=== PATIENT | female | born 1980 | race Hispanic/Latino ===

== ENCOUNTER 2016-05-27 22:14 | Emergency (ER) | payer OTHER ==
[~2016-05-27] VITALS: Ht 162.6 cm; Wt 106.6 kg
[2016-05-27 22:36] LABS: ABSOLUTE BASOPHIL COUNT 0 /CUMM (0.0-0.2); ABSOLUTE EOSINOPHIL COUNT 0.3 /CUMM (0.0-0.7); ABSOLUTE GRANULOCYTE CT 4.9 /CUMM (1.4-6.5); ABSOLUTE LYMPH COUNT 3.5 /CUMM (1.2-3.4); ABSOLUTE MONOCYTE COUNT 0.7 /CUMM (0.10-0.60); BASOPHIL % 0.4 % (0.0-2.0); EOSINOPHIL % 3.4 % (0-5); GRANULOCYTE % 51.6 % (42.2-75.2); HEMATOCRIT 39.8 % (37-47); MEAN CORPUSCULAR HGB 30.8 PG (27.0-31.0); MEAN CORPUSCULAR VOLUME 90.6 FL (81.0-99.0); PLATELET COUNT 304 /CUMM (130-400); RED BLOOD CELL CT 4.39 /CUMM (4.20-5.40); WHITE BLOOD CELL COUNT 9.5 /CUMM (4.8-10.8)
--- NOTE | 2016-05-27 23:37 | ED GI/GU/ABDOMINAL COMPLAINT ---
History of Present Illness General Chief Complaint: Abdominal Pain/Flank Pain Stated Complaint: ABD PAIN, BLOOD IN STOOL Source: patient Exam Limitations: no limitations Vital Signs & Intake/Output Vital Signs & Intake/Output Vital Signs Date Time Temp Pulse Resp B/P Pulse O2 O2 Flow FiO2 Ox Delivery Rate 05/27 2218 97.1 100 18 118/81 98 Room Air ED Intake and Output 05/28 0000 05/27 1200 Intake Total Output Total Balance Patient 235 lb Weight Allergies Coded Allergies: No Known Allergies (12/17/15) Reconcile Medications Hyoscyamine (Levsin) 0.125 MG TABLET 1 TAB PO Q4 PRN ABDOMINAL PAIN Triage Note: 36 YEAR OLD FEMALE COMPLAINS OF CONSTANT ABD PAIN FOR A MONTH, WAS SEEN AT [facility] AND THEY FOUNF NOTHING, COMPLAINS OF SEVERE ABD PAIN FOR THE PAST 3 DAYS AND RED BLOOD IN HER STOOL. Triage Nurses Notes Reviewed? yes ? N Is pt currently ? No HPI: Patient present with abdominal bloating and crampy abdominal pain for the past month. Patient states that with certain foods she feels that her intestines just swell up and she gets very uncomfortable. Patient was seen at [facility] a few days ago for similar complaints and had blood work and a CAT scan at that time. Patient states that she was told that the CAT scan was normal and she was discharged on Bentyl and MiraLAX. Patient states that the doctor was talking so fast because of so busy at she did not understand all is wrong with her so she did not fill the medications. Today the patient felt that she had to move her bowels and there was blood in the toilet water. This happened again tonight and there was again blood in the toilet water. The crampy abdominal pain is diffuse however more intense in the left lower quadrant. It is colicky in nature. The pain fluctuates between a 2 out of 10 up to 7 out of 10. Patient denies any nausea or vomiting. Patient denies any aggravating or mitigating factors. There is no radiation of the pain outside of the abdominal area. Past History Travel History Traveled to [place] past 21 day No Medical History Any Pertinent Medical History? 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 No Review of Systems Review of Systems Constitutional: Reports: no symptoms. EENTM: Reports: no symptoms. Respiratory: Reports: no symptoms. Cardiovascular: Reports: no symptoms. GI: Reports: see HPI, abdominal pain, bloating, bloody stool. Genitourinary: Reports: no symptoms. Musculoskeletal: Reports: no symptoms. Skin: Reports: no symptoms. Neurological/Psychological: Reports: no symptoms. Hematologic/Endocrine: Reports: no symptoms. Immunologic/Allergic: Reports: no symptoms. All Other Systems: Reviewed and Negative Physical Exam Physical Exam General Appearance: well developed/nourished, alert, awake, anxious, mild distress Head: atraumatic, normal appearance Eyes: Bilateral: PERRL, EOMI. Ears, Nose, Throat, Mouth: hearing grossly normal, moist mucous membrane Neck: normal inspection, supple, full range of motion Respiratory: normal breath sounds, chest non-tender, no respiratory distress, lungs clear Cardiovascular: regular rate/rhythm, normal peripheral pulses Gastrointestinal: normal bowel sounds, soft, non-tender, no organomegaly Rectal: BROWN STOOL, HEME POSITIVE Back: normal inspection, normal range of motion Extremities: normal range of motion Neurologic/Psych: no motor/sensory deficits, awake, alert, oriented x 3, normal gait, normal mood/affect Skin: intact, normal color, warm/dry Core Measures ACS in differential dx? No Severe Sepsis Present: No Septic Shock Present: No Progress Differential Diagnosis: bowel obstruction, colon cancer, diverticulitis, gastritis, hepatitis, ischemic bowel, inflamm bowel dis, SBO Plan of Care: Orders Procedure Date/time Status LIPASE 05/27 2227 Complete HUMAN BETA HCG SCREEN 05/27 2227 Complete AMYLASE 05/27 2227 Complete URINALYSIS 05/27 2220 Complete COMPREHENSIVE METABOLIC PANEL 05/27 2220 Complete CBC WITHOUT DIFFERENTIAL 05/27 2220 Complete Laboratory Tests 05/27/16 2304: Urine Color YEL, Urine Clarity CLEAR, Urine pH 7.0, Ur Specific [place] 1.020, Urine Protein NEG, Urine Ketones NEG, Urine Nitrite NEG, Urine Bilirubin NEG, Urine Urobilinogen 0.2, Ur Leukocyte Esterase NEG, Ur Microscopic EXAM NOT REQUIRED, Urine Hemoglobin NEG, Urine Glucose NEG 05/27/16 2228: Anion Gap 11, Estimated GFR > 60, BUN/Creatinine Ratio 16.7, Glucose 94, Calcium 9.2, Total Bilirubin 0.2, AST 19, ALT 30, Alkaline Phosphatase 94, Total Protein 6.6, Albumin 4.0, Globulin 2.6, Albumin/Globulin Ratio 1.5, Amylase < 30 L, Lipase 76, Total Beta HCG NEGATIVE, CBC w Diff NO MAN DIFF REQ, RBC 4.39, MCV 90.6, MCH 30.8, RDW 14.0, MPV 8.0, Gran % 51.6, Lymphocytes % 36.9, Monocytes % 7.7, Eosinophils % 3.4, Basophils % 0.4, Absolute Granulocytes 4.9, Absolute Lymphocytes 3.5 H, Absolute Monocytes 0.7 H, Absolute Eosinophils 0.3, Absolute Basophils 0, PUBS MCHC 34.0 05/27/16 2225: Amylase Cancelled, Lipase Cancelled, Total Beta HCG Cancelled Initial ED EKG: none Departure Departure Disposition: HOME OR SELF CARE Condition: Stable Clinical Impression Primary Impression: Colitis Referrals: PATIENT HAS NO PRIMARY CARE DR (PCP/Family) KISHA MIRANDA MD Additional Instructions: CALL DR. MIRANDA FOR AN APPOINTMENT (GASTROENTEROLOGY) SOMEONE FROM [facility] WILL CALL YOU TAKE LEVSIN NEEDED FOR DISCOMFORT RETURN IF SYMPTOMS WORSEN OR FOR ANY CONCERNS Departure Forms: Customer Survey General Discharge Information Prescriptions: Current Visit Scripts Hyoscyamine (Levsin) 1 TAB PO Q4 PRN ABDOMINAL PAIN #20 TAB
[2016-05-28] MEDS ORDERED: LEVSIN0.125 M1 PO (00:14)
[2016-05-28 00:39] VITALS: BP 130/81
== END 2016-05-28 00:45 ==
LOC: ERH 22:14
PROVIDERS: Emergency Medicine
DX: K52.9 Noninfective gastroenteritis and colitis, unspecified (principal)
CPT/HCPCS: 81003

== ENCOUNTER 2017-07-11 18:38 | Inpatient (IN) | payer OTHER ==
[~2017-07-11] VITALS: Ht 162.6 cm; Wt 107.3 kg
[~2017-07-11 18:38] MED LIST: LEVSIN0.125 M1 PO
[2017-07-11 19:05] LABS: ABSOLUTE BASOPHIL COUNT 0.1 /CUMM (0.0-0.2); ABSOLUTE EOSINOPHIL COUNT 0.4 /CUMM (0.0-0.7); ABSOLUTE GRANULOCYTE CT 6.4 /CUMM (1.4-6.5); ABSOLUTE LYMPH COUNT 4.1 /CUMM (1.2-3.4); ABSOLUTE MONOCYTE COUNT 0.7 /CUMM (0.10-0.60); BASOPHIL % 1.2 % (0.0-2.0); EOSINOPHIL % 3.1 % (0-5); HEMATOCRIT 42.9 % (37-47); MEAN CORPUSCULAR HGB 30.9 PG (27.0-31.0); MEAN CORPUSCULAR HGB CONC 33.8 G/DL (33.0-37.0); MEAN CORPUSCULAR VOLUME 91.5 FL (81.0-99.0); PLATELET COUNT 415 /CUMM (130-400); RED BLOOD CELL CT 4.69 /CUMM (4.20-5.40); WHITE BLOOD CELL COUNT 11.7 /CUMM (4.8-10.8)
[2017-07-11 19:09] LABS: GRANULOCYTE % 54.8 % (42.2-75.2)
--- NOTE | 2017-07-11 19:09 | ED PSYCHIATRIC COMPLAINT ---
See Addendum History of Present Illness General Chief Complaint: Psychiatric Related Complaint Stated Complaint: BIBA SI Source: patient Exam Limitations: no limitations Vital Signs & Intake/Output Vital Signs & Intake/Output 07/11/17 Allergies Coded Allergies: No Known Allergies (12/17/15) Triage Note: PT BIBA AFTER BEING FOUND IN HER CAR WITH BOTH OF HER WRISTS CUT. BLEEDING CONTROLLED AND PT HAS FULL RANGE OF MOTION TO BOTH HANDS. PT HAD TOLD FAMILY SHE WAS SUICIDAL, AND FAMILY WAS ABLE TO FIND HER IN [place]. PT ARRIVES ANXIOUS AND COOPERATIVE. Triage Nurses Notes Reviewed? yes Onset: Abrupt Duration: unknown duration Timing: recent history HPI: 07/11/17 9:30 PM 7-year-old female presents to the emergency department on a police paper for alcohol intoxication and suicidal ideation. The patient verbalized suicidal ideation. Her daughter who is in [place], called the police. She did cut her wrist. She has lacerations to both wrists. They're linear. She denies other injuries or complaints. (Asael Lucia DO) Reconcile Medications No Known Home Medications (Kiana ALMONTE,Asael Gtz) Past History Travel History Traveled to [facility] past 21 day No Medical History Any Pertinent Medical History? 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 No (Asael Lucia DO) Review of Systems Review of Systems Constitutional: Reports: no symptoms. EENTM: Reports: no symptoms. Respiratory: Reports: no symptoms. Cardiovascular: Reports: no symptoms. GI: Reports: no symptoms. Genitourinary: Reports: no symptoms. Musculoskeletal: Reports: see HPI. Skin: Reports: see HPI. Neurological/Psychological: Reports: depressed. Hematologic/Endocrine: Reports: see HPI. Immunologic/Allergic: Reports: no symptoms. (Asael Lucia DO) Physical Exam Physical Exam General Appearance: alert, awake, anxious, moderate distress Head: atraumatic, normal appearance Eyes: Bilateral: normal appearance, PERRL, EOMI. Ears, Nose, Throat: normal pharynx, normal ENT inspection Neck: normal inspection, supple Respiratory: normal breath sounds, chest non-tender, no respiratory distress Cardiovascular: regular rate/rhythm Gastrointestinal: non-tender Extremities: LACERATIONS Neurological/Psychiatric: awake, agitated, alert, depressed affect Appearance/Memory/Insight: disheveled Behavoir/Eye Contact/Speech: cooperative Thoughts/Hallucinations: no apparent hallucination Skin: LACEARTIONS SAD PERSONS SAD PERSONS Response Value Depression/Hopelessness? yes 2 Previous Attempts/Psych Care yes 1 Excessive Ethanol/Drug Use? yes 1 Rational Thinking Loss? yes 2 Single//? yes 1 Organized/Serious Attempt yes 2 Social Support? has no support 1 Total 10 SAD PERSONS Done? yes (Asael Lucia DO) Progress Differential Diagnosis: drug intoxication, drug overdose, drug withdrawal, DEPRESSION Plan of Care: Orders Procedure Date/time Status Continuous Observation Monitor 07/13 0700 Active Continuous Observation Monitor 07/13 0300 Active Regular Diet 07/12 L Active Continuous Observation Monitor 07/12 2300 Active Continuous Observation Monitor 07/12 1900 Active Current Medications Sig/Nato Start time Last Medication Dose Stop Time Status Admin Zolpidem Tartrate 10 MG AT BEDTIME 07/12 2144 UNVr 07/12 (Ambien) 213 Nicotine 21 MG DAILY 07/12 2029 UNVr 07/12 (Nicoderm) 2031 The right wrist laceration was anesthetized with lidocaine 1% 5 mL, 3 sutures 4- 0 placed by myself sterile dressing bacitracin applied. The to left wrist lacerations were anesthetized with lidocaine 1% 5 ML's, 7 sutures were placed 3-0 by myself patient tolerated procedures well sterile dressing bacitracin is applied the total length of all lacerations was approximately 5 cm (Giorgio Harris) Initial ED EKG: none (Asael Lucia DO) Hand-Off Endorsed To: Asael Bruno MD Endorsed Time: 07 Pending: consult (Julien ALMONTE,Camacho Singh) Comments: 07/12/2017 7:08:43 AM patient signed out to me by Dr. 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 07/12/2017 7:24:16 PM patient signed out to Dr. Ross at shift private branch exchange repairer after an uneventful emergency department stay during the day shift. (Asael Bruno MD) Hand-Off Endorsed To: Asael Bruno MD Endorsed Time: 0700 Pending: other (Vandana ALMONTE,Eliseo) Departure Departure Disposition: STILL A PATIENT Condition: Stable Clinical Impression Primary Impression: Depression Secondary Impressions: Alcohol abuse, Lacerations of multiple sites of left arm Referrals: Yulisa ALMONTE,Camacho Patricia (PCP/Family) Departure Forms: Customer Survey General Discharge Information Comments Patient has lacerations that are linear relatively superficial to the left and right wrist. The wounds were dressed. POLINA Ochoa's to close the wounds. Tetanus shot was given. She will be signed out to Dr. Victoria at 11 PM. (Asael Lucia DO) Departure Prescriptions: Current Visit Scripts No Known Home Medications (Asael Bruno MD) Critical Care Note Critical Care Note Critical Care Time: 30-74 min (Asael Lucia DO)
--- NOTE | 2017-07-12 12:57 | ED PSYCH CRISIS CONSULTATION ---
See Addendum Crisis Consult Basic Assessment Date of Consult: 07/12/17 Responsible Person/Accompanied By: Brought in by ambulance on a PEER (Yari MCNEIL ) Insurance Authorization: Insurance #1: Insurance name: JUNI Mckeon C&A Policy number: [id number] ED Provider: Patient's ED Provider: Asael Lucia DO Primary Care Physician: Patient's PCP: Camacho Márquez MD PCP's Current Psychiatrist: No current psychiatric provider Chief Complaint: Suicide attempt by cutting wrists / alcohol Patient's Quote: "I was under a bit of depression...stress." Present Illness: Patient is a 37 year old female who was brought to the emergency department on a police emergency examination request (P.E.E.R.) from [place] [employer]. The PEER specifies that "said she is under alot of stress and wanted to kill herself....cut both wrists w/ razor blade." On arrival, patient's blood alcohol level was ~309. Patient asserts she has been "going through a few thing.bills.. 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 Patient reports her family is experiencing financial difficulties due to ananth's unemployment. Patient also reports she had a "falling out" with her family (mother and sister). Patient states "I let me emotions get in the way" but indicates she has recently tried to repair the relationship. Yesterday, patient admits to cutting her wrists bilaterally. Patient had called her sister informing her of her thoughts to self-harm. Patient was also communicating with family members in a group text message. Patient asserts she drove to a [employer] and bought a razor blade yesterday with the intent to cut. Patient denies any previous cutting behavior. Patient states she was feeling hopeless about her financial situation and was thinking "I'm trying, trying, trying" yet she feels she isnt helping the situation. Patient has no history of mental health diagnosis or treatment. Patient has received substance use treatment after she received a driving under the influence charge several years ago. Patient was referred by court for mandated substance use treatment at [facility] in [place], [place] which she completed sucessfully. Patient does assert she is receptive to starting outpatient mental health treatment. Patient has 3 children (son age 2.5 years, son age 17, and daughter age 21.) Patient's adult daughter lives in [place]. Patient's ananth is the father of her 2.5 year old son. Patient lives in [place], [place] with ananth and two of her younger children. Patient denies current suicidal ideation, intent or plan. A [facility] Suicide Severity Rating Scale (C-S.S.R.S.) was completed - Patient has had suicidal attempt yesterday and significant suicidal ideation in the past week. Patient indicates the first time she experienced suicidal ideation was about 1 year ago and has had intermittent ideation since. Patient denies any past suicide attempts. Patient has activating events of family conflict and financial difficulties. Patient is not currently in any formal mental health treatment / cousneling. Patient reports feeling hopeless, uses alcohol several times a week, and has experienced significant anxiety recently. Patient did identify protective factors such as a reason for living, responsibility to family, and a supportive family. Patient reports drinking alcohol 1-2x a week. Patient reports she typically drinks only a few servings at a time. Yesterday, patient admits to drinking a beer as well as almost a pint of tequilla hard alcohol. Patient has insight that she drinks more when "feeling down." Patient was previously evaluated at [facility] in November 2015 for alcohol intoxication with a BAL of 245. Patient denies trauma history but does indicate she was affected by the loss of a former significant other / father of her older son. Patient has no acute medical findings and was cleared by attending ED physician. Patient's wrists were treated with dressing / Tyrone bandages. Patient is not prescribed any medications. Patient's Address: [address] [place] [address] Who Do You Live With? Family (Jayde and two children(2&17)) Family/Informants Interviewed: Jayde Allergies - Coded Allergies: No Known Allergies (12/17/15) Current Medications - No Known Home Medications Laboratory Results: Laboratory Tests 07/11/17 1854: Anion Gap 17 H, Estimated GFR > 60, BUN/Creatinine Ratio 16.7, Glucose 105 H, Calcium 9.3, Total Bilirubin 0.5, AST 18, ALT 31, Alkaline Phosphatase 100, Total Protein 7.7, Albumin 4.6, Globulin 3.1, Albumin/Globulin Ratio 1.5, CBC w Diff NO MAN DIFF REQ, RBC 4.69, MCV 91.5, MCH 30.9, MCHC 33.8, RDW 13.0, MPV 8.0 , Gran % 54.8, Lymphocytes % 34.8, Monocytes % 6.1, Eosinophils % 3.1, Basophils % 1.2, Absolute Granulocytes 6.4, Absolute Lymphocytes 4.1 H, Absolute Monocytes 0.7 H, Absolute Eosinophils 0.4, Absolute Basophils 0.1, Serum Alcohol 309.0 07/11/17 1853: Urine Opiates Screen < 100, Methadone Screen < 40, Barbiturate Screen < 60, Ur Phencyclidine Scrn < 6.00, Amphetamines Screen 104, U Benzodiazepines Scrn < 85, Urine Cocaine Screen < 50, Urine Cannabis Screen < 5.00 (Puneet Sethi LCSW) Addendum Addendum 07/12/2017, 7:10pm Pt. was seen by this soda tester on the evening shift for re-evaluation after being held over from the day shift. Pt. was found to be at risk of harm to self and a bed search had been done after which pt's information had been faxed to [facility]. Both hospitals were called Pt. was alert and oriented this evening. She was in bed reading a book when this clinician came into her room. Pt. was pleasant and cooperated with the re- evaluation. She denied any current suicidal thoughts and said that she cut her wrists impulsively while under the influence of alcohol. Pt. said that she could not believe that she had done what she had done. Pt. said that she was hoping to be admitted to [facility] so that she could be close to her two year old son. Pt. then asked if there was a possibility that when the psychiatrist evaluated tomorrow that she might be allowed to do [facility] IOP instead of being admitted inpatient. Pt. said that she just began a new job and that she has to work on Friday. Pt. also said that she missed her son and had a lot of housework to do. Pt. was told that there was a possibility of being enrolled in the IOP instead of being hospitalized but that this would be the decision for the psychiatrist. Pt. expressed understanding of this and of being held over tonight in the ED. Pt. offered no other complaints. 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 Patient is willing to accept mental health treatment, Physical Limitations (Interventions): None assessed Psychiatric Treatment History Psych Treatment Psychiatric Treatment No Inpatient Treatment No Outpatient Treatment No Diagnosis by History: Alcohol use disorder Substance Use/Abuse History Drug Use/Abuse Substances Used/Abused Yes Substance Used/Abused Alcohol First Use Patient did not specify Last Used Yesterday How much used/taken Patient reports 1 beer & ~1 pint of tequilla. blood alcohol level at 309 How often Patient reports use 1-2x per week for the past few years For how long Longstanding alcohol use as adult Route of use Ingestion Substance Abuse Treatment Substance Abuse Treatment Past Substance Abuse [place] Yes Inpatient Treatment No Outpatient Treatment Yes Location of Treatment [facility] in [place], [place] Reason for Treatment Alcohol use disorder / court referred treatment after a driving under influence charge Dates of Treatment Unknown Response to Treatment Patient did achieve sobriety and sustained this with alcoholics anonymous in the community. However, she has had relapses with episodes of binge drinking. Comments: - (Navdeep JOSEPH,Puneet) Current Mental Status Mental Status Orientation: Person, Place, Situation Affect: Depressed, Sad Speech: WNL Neuro-vegetative: Anhedonia, Sleep Disturbance Appearance Appearance- Dress/Hygiene: Patient dressed in hospital attire. No remarkable features observed other cheo tyrone bandages on both arms due to recent cutting. Behaviors Thought Process: WNL Thought Content: WNL Memory: WNL Insight: Fair SI/HI Risk Assessment Past Suicidal Ideation/Attempts Yes (SI in past year. Attempt 07/11) Current Suicidal Ideation/Att No (Patient denies current SI) Past Homicidal Ideation/Att: No Current Homicidal Ideation/Attempts No Degree of Intent: None Danger To: Self Gravely Disabled: Poor Impulse Control, Poor Judgment Risk Factors: access to lethal means, high anxiety/distress, history of suicide atmpts, substance abuse, lack of outcome concern Lethality Ratin PTSD Checklist PTSD Done? patient declined (Pt. denies trauma history. ) ED Management Sitter: Yes Restraints: No (Patient is calm & cooperative.) (Puneet Sethi LCSW) DSM5/PS Stressors/Medical Prob Diagnosis' (DSM 5, Stressors, Medical): F32.9 Unspecified depressive disorder F10.20 Alcohol use disorder, severe Current GAF: 20 Comments: Financial difficulties (Puneet Sethi LCSW) Departure Disposition Psych Medical Clearance Date: 07/12/17 Medically Cleared at: 1100 Time Started: 1100 Time Ended: 1200 Psychiatrist Consulted: Dr. Zarina Guzmán MD Date Disposition Established: 07/12/17 Time Disposition Established: 1200 Plan for Disposition - Modality: Bed Search Rationale for Disposition: Crisis evaluation reviewed with Dr. Guzmán. Patient has had a suicide attempt yesterday. Patient is at on-going risk of harm to self due to unresolved depressed mood, anxiety, and recent alcohol use. There are no beds available at [facility]'s inpatient psychiatric unit. Patient will be referred after a bed search to other [facility] with availability for an admission. Patient was informed of crisis disposition plan. Referrals Camacho Márquez MD (PCP/Family) (Puneet Sethi LCSW)
--- NOTE | 2017-07-12 15:54 | ED PSY CRISIS COLLATERAL NOTE ---
Collateral Note Collateral Note Family/Inform/Bela Contacts: Spoke in-person to patient's firadha - Bradly Morales. Ananth reports patient has made suicidal statements in the past few months but she has not had any history of attemtps. Ananth reports he is concerned about the level of patient's drinking - he asserts she does not drink everyday but her intermittent drinking often leads to serious binges. Ananth is concerned about the impact of an extended stay at the hospital on patient's 2 year old son as well as on her job which she only recently started. Ananth asserts patient's son has a calming effect on her and that she would have difficulty with being from him. This teletypewriter operator advised on the rationale for an inpatient admission and also suggested possible alternative disposition on Friday if no inpatient beds are found and patient maintains stability and denies suicidal ideation (direct discharge from ED to IOP appointment at [facility]). This teletypewriter operator advised ananth that a discharge is unlikely and that the primary crisis disposition currently is an inpatient psychiatric transfer admission bed search. Ananth expressed no concerns currently and understands the crisis plan. Ananth agrees that patient would benefit from counseling / psychotherapy. Martinradha deferred formally seeking an intake appointment. This teletypewriter operator informed ananth that on-call psychiatrist Dr. Guzmán would be evaluation patient tomorrow in the afternoon for further evaluation.
--- NOTE | 2017-07-13 10:07 | ED PSYCHIATRIST/APRN CONSULT ---
Psychiatrist/TAILER IN ED Consult Assessment and Plan: 37 year old woman with no treated psychiatric history, brought to the ER after she was intoxicated, on a PEER and cut herself with both wrists and razor blade. Her etoh was 309. She was seen by crisis on 07/12 and noted that she was going through a number of things including financial stressors and falling out with her own family. She stated that she became too emotional and impulsively went to the store and bought razor to cut her wrist. Noted that she is anxious in general, but has never had any suicide attempts and can function overall well. she minimized her drinking stating its not like that and did not volunteer her past DUI; her fianc also noted that she is drinking excessively. Ananth stated that she has made suicidal statements over the last few months and is likely minimizing extent of her drinking. Both are concerned about her returning to work and caring for her 2 year old son (being cared by father/ananth). 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 Affectively she cried at times, appropriately, mostly b/c of not being able to be with her toddler son, stating she missed him. Informed her that he could come visit again today. She denied past suicidal thoughts except for many years ago, denied past attempts, denied difficulties with appetite or energy or hallucinations. She has no evidence of psychosis. She was pleasant but anxious about being admitted. She has had no past treatment inpatient or outpatient. She was in the ER with intoxication in the last two years as well. We discussed medication options, including PRN or standing medications she stated that years ago when she tried to quit smoking and was anxious her doctor gave her something with the opposite effect and she never wanted to take meds afterward. Despite this, agreed to some PRN medications only while hospitalized for her anxiety, claustrophobia in being in the room and sleep. MSE: well groomed woman, in hospital gown,good eye contact and well related. Her speech is normal. Thinking is linear. Thought content is free of delusional material ; positive for general anxiety about her current situation, depression about her suicide attempt and wanting to be home with her family. Not actively suicidal and denies any recent thoughts, stating it was impulsive. Her mood is down and affect is full, reactive, appropriately tearful and is able to recompensate on her own. She is of average intellect at least, insight and judgment are both poor in light of the recent incident. A: 37 year old woman with anxiety/depressive sx, alcohol use disorder, after suicide attempt by cutting wrists while intoxicated. She is tearful, depressed but has many protective factors, namely children including a toddler she cares for, a fianc with whom she states she has a good relationship, and a recent job. Her recent intoxication, no past treatment and suicide attempt are her most active risk factors for violence to self. Plan: continues to meet criteria for admission at this time. She does have a number of protective factors which will mitigate her acute risk once this episode continues to resolve and she is set up with outpatient care. She was given ambien but given her severe alcohol history and likelihood that the med may continue while inpatient, I will change to trazodone, with PRN carolpar for now, and adjust as necessary. She declined any standing meds and did not want any meds at all, except maybe for sleep. Would benefit from something in the short term for anxiety sx especially, continue to educate her. Urine hcg prior to meds. Minimizing etoh use but will likely need substance use component in her treatment given her etoh levels, past ER visit and fianc collateral about consumption.
--- NOTE | 2017-07-14 13:40 | IP CRISIS DIAG ASSESS PSYCH ---
Diagnostic Assessment Basic Assessment Insurance Authorization: Insurance #1: Insurance name: JUNI Mckeon C&A Phone number: Policy number: [id number] Group number: Authorization number: Primary Care Physician: Patient's PCP: Camacho Márquez MD PCP's Patient's Quote: "I was under a bit of depression...stress." Present Illness: The following was taken from the Crisis Consult authored by Juan Sethi LCSW: Patient is a 37 year old female who was brought to the emergency department on a police emergency examination request (P.E.E.R.) from [place] [employer]. The PEER specifies that "said she is under alot of stress and wanted to kill herself....cut both wrists w/ razor blade." On arrival, patient's blood alcohol level was ~309. Patient asserts she has been "going through a few thing.bills.. 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 Patient reports her family is experiencing financial difficulties due to firadha's unemployment. Patient also reports she had a "falling out" with her family (mother and sister). Patient states "I let me emotions get in the way" but indicates she has recently tried to repair the relationship. Yesterday, patient admits to cutting her wrists bilaterally. Patient had called her sister informing her of her thoughts to self-harm. Patient was also communicating with family members in a group text message. Patient asserts she drove to a [employer] and bought a razor blade yesterday with the intent to cut. Patient denies any previous cutting behavior. Patient states she was feeling hopeless about her financial situation and was thinking "I'm trying, trying, trying" yet she feels she isnt helping the situation. Patient has no history of mental health diagnosis or treatment. Patient has received substance use treatment after she received a driving under the influence charge several years ago. Patient was referred by court for mandated substance use treatment at [facility] in [place], [place] which she completed sucessfully. Patient does assert she is receptive to starting outpatient mental health treatment. Patient has 3 children (son age 2.5 years, son age 17, and daughter age 21.) Patient's adult daughter lives in [place]. Patient's ananth is the father of her 2.5 year old son. Patient lives in [place], [place] with ananth and two of her younger children. Patient denies current suicidal ideation, intent or plan. A [facility] Suicide Severity Rating Scale (C-S.S.R.S.) was completed - Patient has had suicidal attempt yesterday and significant suicidal ideation in the past week. Patient indicates the first time she experienced suicidal ideation was about 1 year ago and has had intermittent ideation since. Patient denies any past suicide attempts. Patient has activating events of family conflict and financial difficulties. Patient is not currently in any formal mental health treatment / cousneling. Patient reports feeling hopeless, uses alcohol several times a week, and has experienced significant anxiety recently. Patient did identify protective factors such as a reason for living, responsibility to family, and a supportive family. Patient reports drinking alcohol 1-2x a week. Patient reports she typically drinks only a few servings at a time. Yesterday, patient admits to drinking a beer as well as almost a pint of tequilla hard alcohol. Patient has insight that she drinks more when "feeling down." Patient was previously evaluated at [place] [facility] in November 2015 for alcohol intoxication with a BAL of 245. Patient denies trauma history but does indicate she was affected by the loss of a former significant other / father of her older son. Patient has no acute medical findings and was cleared by attending ED physician. Patient's wrists were treated with dressing / Tyrone bandages. Patient is not prescribed any medications. Crisis and psychiatrist met with patient through out the weekend. Pt continued to be recommended for inpatient psychiatric treatment. Patient's [address]: [address] [place] [id number] Other Phone Number: Who Do You Live With? Family (Jayde and two children(2&17)) Feel Safe Where You Live? Yes Feel Safe in Your Relationship Yes Marital Status: single Do You Have Children? Yes Ages? 21, 17 2.5 Primary Language? Faroese Family/Informants Interviewed: Fiance Allergies - Coded Allergies: No Known Allergies (12/17/15) Current Medications - No Known Home Medications Consequences of Psych Med Use: not prescribed any medications Lab Results: Laboratory Tests 07/13/17 2015: Urine Test NEGATIVE Toxicology Screen Completed? Yes Results: negative Past History Abuse/Trauma History Trauma History/Current Trauma: Denies Legal History Current Legal Status: alcohol/drug legal problm (completed tx for DUI) Have you ever been arrested? 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 Patient is willing to accept mental health treatment, Physical Limitations (Interventions): None assessed Psychiatric Treatment History Psych Treatment Psychiatric Treatment No Inpatient Treatment No Outpatient Treatment No Diagnosis by History: Alcohol use disorder Risk Factors: access to lethal means, high anxiety/distress, history of suicide atmpts, substance abuse, poor impulse control, lack of outcome concern Substance Use/Abuse History Drug Use/Abuse minimum 12mo Hx Substances Used/Abused Yes Substance Used/Abused Alcohol First Use Patient did not specify Last Used Yesterday How much used/taken Patient reports 1 beer & ~1 pint of tequilla. blood alcohol level at 309 How often Patient reports use 1-2x per week for the past few years For how long Longstanding alcohol use as adult Route of use Ingestion Substance Abuse Treatment Substance Abuse Treatment Past Substance Abuse [place] Yes Inpatient Treatment No Outpatient Treatment Yes Location of Treatment [facility] in [place], [place] Reason for Treatment Alcohol use disorder / court referred treatment after a driving under influence charge Dates of Treatment Unknown Response to Treatment Patient did achieve sobriety and sustained this with alcoholics anonymous in the community. However, she has had relapses with episodes of binge drinking. Sexual History Sexually Active Yes # of partners 1 Sexual Orientation Heterosexual Education History Highest Level of Education: not sure Preferred Learning Style: visual, auditory, experiential Current Mental Status Mental Status Orientation: Person, Place, Situation Affect: Depressed, Sad Speech: WNL Neuro-vegetative: Anhedonia, Sleep Disturbance Appearance Appearance- Dress/Hygiene: Patient dressed in hospital attire. No remarkable features observed other cheo tyrone bandages on both arms due to recent cutting. Behaviors Thought Process: WNL Thought Content: WNL Memory: WNL Insight: Fair SI/HI Risk Assessment - Minimum 6mo History- Past Suicidal Ideation/Attempts Yes (SI in past year. Attempt 07/11) Current Suicidal Ideation/Att No (Patient denies current SI) Past Homicidal Ideation/Att: No Current Homicidal Ideation/Attempts No Degree of Intent: None Danger To: Self Gravely Disabled: Poor Impulse Control, Poor Judgment Risk Factors: access to lethal means, high anxiety/distress, history of suicide atmpts, substance abuse, lack of outcome concern Lethality Ratin Needs/Init TX Plan/Goals: Comphrensive Psychiatric Assessment Medication Evaluation Comphrensive Psychosocial Assessment Individual/ Group Therapy Family Mtg AUDIT-C Questionnaire: AUDIT-C Questionnaire: Response Value ETOH use in the past year 2-4 times/week 3 # drinks typical/day 3 or 4 1 6 or > drinks per occasion Monthly 2 Total 6 DSM5/PS Stressors/Medical Prob Diagnosis' (DSM 5, Stressors, Medical): F32.9 Unspecified depressive disorder F10.20 Alcohol use disorder, severe Current GAF: 28 Comments: Financial difficulties
--- NOTE | 2017-07-14 17:18 | SOCIAL WORKER SOCIAL HX PSYCH ---
Social History Basic Assessment Insurance Authorization: Insurance #1: Insurance name: JUNI Mckeon C&A Phone number: Policy number: [id number] Group number: Authorization number: Primary Care Physician: Patient's PCP: Camacho Márquez MD PCP's Primary Language? Spanish Living Situation Rents or Owns Home? rents Feel Safe Where You Are Living Yes Feel Safe in Relationships? Yes Allergies - Coded Allergies: No Known Allergies (12/17/15) Current Medications - No Known Home Medications Past History Past Medical History Neurological: NONE EENT: NONE Cardiovascular: NONE Respiratory: NONE Gastrointestinal: NONE Hepatic: NONE Renal: NONE Musculoskeletal: NONE Psychiatric: NONE Endocrine: NONE Blood Disorders: NONE Cancer(s): NONE DOOR TRIMMER/Reproductive: NONE Past Surgical History Surgical History: none /Family History Place/Country of Origin: [place], [place] Childhood Family Constellation: Mother, twin brother, older sister, and younger brother. Primary Childhood Caretakers: mother Family Life During Childhood: Pt lived in [place] until she was [age] years old then moved to [place]. Pt reports it was tough growing up but managed to get by, overall good. DCF Involvement? No Mother's Age (Current/): 58 Relationship w/Mother: "never was great but we talk" Father's Age (Current/): 67 Relationship w/Father: "on and off, he lives in [place] so I see him here and there" Any Sibling(s)? Yes Sibling's Gender(s)/Age(s): female Sibling 1: (older sister), male Sibling 2: (Twin brother ), male Sibling 3: (younger brother ) Relationship w/Sibling(s): Pt reports she has a okay relatiosnhip with siblings. Relationship w/Friends: Pt reports that she is connected to friends, she has people to go to and try to get together on weekends. Number of Pregnancies: 3 Number of Miscarriages: 0 Number of Abortions: 0 Abuse/Trauma History Trauma History/Current Trauma: Denies History of Trauma/Abuse Treatment? No Legal History Current Legal Status: none Have you ever been arrested Yes (GRI[place]I in 2010) Number of Arrests: 1 Hx of Juvenile Legal Charges? No Hx of Adult Legal Charges? 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 Patient is willing to accept mental health treatment, Physical Limitations (Interventions): None assessed Last Physical: January 2017 History of Seizures? No History of Blackouts? No ADL Limitations: none [place]/Social/Peer Relations Connected with friends and peers, has people to go to. Try to get togther on weekends with their children. Meaningful Activities: Likes to read, be outdoors with children and go to [place], listening to music, spending time with family. Childhood Mormonism: Druze, Seventh Day Worship Current Jain Affiliation: Druze Is Spirituality Important to You? Yes, Pt reports she will reconnect with tenriism jainism community, was a great support that she use to be stringly connected with. Patient's Ethnicity: Pakistani Cultural/Ethnic Issues: none reported Are There Developmental Issues? No Milestones Achieved: fine motor, gross motor Psychiatric Treatment History Psych Treatment Inpatient Treatment No Outpatient Treatment No Diagnosis: Alcohol use disorder Risk Factors: access to lethal means, high anxiety/distress, history of suicide atmpts, substance abuse, poor impulse control, lack of outcome concern Substance Use/Abuse History Drug Use/Abuse Substance Used/Abused Alcohol First Use Patient did not specify Last Used Yesterday How much used/taken Patient reports 1 beer & ~1 pint of tequilla. blood alcohol level at 309 How often Patient reports use 1-2x per week for the past few years For how long Longstanding alcohol use as adult Route of use Ingestion Have You Ever Attended AA? Yes (When arrest in 2010 for DUI) Do You Attend AA Currently? No Do You Have a Sponsor? No Substance Abuse Treatment Substance Abuse Treatment Inpatient Treatment No Outpatient Treatment Yes Location of Treatment [facility] in [place], [place] Reason for Treatment Alcohol use disorder / court referred treatment after a driving under influence charge Dates of Treatment Unknown Response to Treatment Patient did achieve sobriety and sustained this with alcoholics anonymous in the community. However, she has had relapses with episodes of binge drinking. 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 of Jobs in Last 5 Years: 2 Attendance: Above average Performance: Exemplary History Have You Been in The ? No Current Mental Status Mental Status Orientation: Person, Place, Situation Affect: Depressed, Sad Speech: WNL Neuro-vegetative: Anhedonia, Sleep Disturbance Appearance Appearance- Dress/Hygiene: Patient dressed in hospital attire. No remarkable features observed other cheo evan bandages on both arms due to recent cutting. Behaviors Thought Process: WNL Thought Content: WNL Memory: WNL Insight: Fair SI/HI Risk Assessment Past Suicidal Ideation/Attempts Yes (SI in past year. Attempt 07/11) Current Suicidal Ideation/Att No (Patient denies current SI) Past Homicidal Ideation/Att: No Current Homicidal Ideation/Attempts No Degree of Intent: None Danger To: Self Gravely Disabled: Poor Impulse Control, Poor Judgment Lethality Ratin - Conclusion and Recommendations for treatment - and discharge planning
[2017-07-14 17:58] VITALS: BP 133/66
[2017-07-14 17:59] VITALS: BP 133/66
[2017-07-14 19:57] VITALS: BP 134/78
[2017-07-14 19:59] VITALS: BP 134/78
--- NOTE | 2017-07-14 21:26 | Admission Certification ---
Admission Certification Certification Statement - As attending physician, I certify that at the time of - admission, based on clinical presentation, severity of - symptoms, need for further diagnostic testing and - therapeutic interventions, and risk of adverse outcomes - without in-hospital treatment, in my clinical assessment, - this patient requires an acute hospital stay for a minimum - of two nights or longer. I have also considered psychsocial - factors such as support system, advanced age, financial - issues, cognitive issues, and failed out-patient treatments, - past re-admission history, safety of patient, and lack of - compliance as applicable. Specific rationale supporting this admission is: Depression, suicidal attempt
--- NOTE | 2017-07-14 21:26 | History & Physical ---
General Information and HPI MD Statement: I have seen and personally examined CHAIM CROWE and documented this H&P. The patient is a 37 year old F who presented with a patient stated chief complaint of [Suicide attempt]. Source of Information: patient Exam Limitations: no limitations History of Present Illness: 37 yo F with h/o ?anxiety, depression (not on medications), was brought in after being found in her car with both wrists cut. She was intoxicated at that point. She reports being under a lot of stress but states that she does not drink on a daily basis. She only drinks over the weekend. She has probably been managing her anxiety with alcohol use, as medications did not seem to help her. Please refer to Psych H and P for full details. 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 Currently patient denies any symptoms of chest pain, palpitations, dyspnea, nausea, vomiting, abdominal pain, diarrhea or urinary symptoms. Her bilateral wrist lacerations were sutured in the ER. 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 Psychosocial History Where do you live? Home Who Do You Live With? spouse, child Services at Home: None Primary Language: Yi Smoking Status: Current Everyday Smoker ETOH Use: occasional use (once every week) Illicit Drug Use: denies illicit drug use Functional Ability ADLs Independent: dressing, eating, toileting, bathing. Ambulation: independent Employment History Employment Employed Review of Systems Review of Systems Constitutional: Denies: chills, fever, weakness. EENTM: Reports: no symptoms. Cardiovascular: Denies: chest pain, palpitations, syncope. Respiratory: Denies: cough, short of breath, sputum production, wheezing. GI: Denies: abdominal pain, diarrhea, nausea, vomiting. Genitourinary: Reports: no symptoms. Neurological/Psychological: Reports: see HPI. All Other Systems: Reviewed and Negative Exam & Diagnostic Data Last 24 Hrs of Vital Signs/I&O Vital Signs Date Time Temp Pulse Resp B/P B/P Pulse O2 O2 Flow FiO2 Mean Ox Delivery Rate 07/14 1958 98.6 93 134/78 07/14 1956 98.6 93 134/78 07/149 98.8 92 133/66 07/14 1758 98.8 92 133/66 07/14 1543 98.9 84 18 129/74 97 07/14 1443 98.4 84 18 128/80 96 07/14 1136 98.4 88 18 110/70 100 07/14 0851 98.7 85 18 113/72 98 07/14 0011 97.8 90 18 111/71 98 Room Air Physical Exam General Appearance Alert, Oriented X3, Cooperative, No Acute Distress Skin Bilateral wrist lacerations with sutures in place HEENT PERRLA, EOMI, Mucous Membr. moist/pink Neck Supple Cardiovascular Regular Rate, Normal S1, Normal S2, No Murmurs Lungs Clear to Auscultation, Normal Air Movement Abdomen Normal Bowel Sounds, Soft, No Tenderness Neurological Exam Findings: Normal Gait, Normal Speech, Strength at 5/5 X4 Ext, Normal Tone, Sensation Intact, Cranial Nerves 3-12 NL Cranial Nerves II through XII: intact Extremities No Edema, Normal Pulses, No Tenderness/Swelling Last 24 Hrs of Labs/Ramy: Laboratory Tests 07/13/172014: Urine Test NEGATIVE Diagnostic Data EKG Results -- CXR Results -- Assessment/Plan Assessment: 37 yo F with h/o anxiety/ depression, alcohol use disorder, is admitted after suicide attempt by cutting her wrists. - Continue management as per Psych team. - Smoking cessation counseling, nicotine patch and gum. - Bilateral wrist lacerations apply bacitracin twice daily, patient does not want to apply bandage over it. Will need the stitches to be removed on day 7 ( July 18 ). - DVT ppx low risk, early ambulation. As Ranked By This Provider Problem List: 1. Lacerations of multiple sites of left arm 2. Alcohol intoxication 3. Depression Miscellaneous Miscellaneous Documentation Attending Case Discussed With: Bautista Singh MD Primary Care Physician: Camacho Márquez MD Patient sees these Specialists -- Level of Patient Care: HILL Schwartz Attending MD Review Statement Attending Statement Attending MD Statement: examined this patient, discuss w/resident/PA/STAFF MECHANICAL ENGINEER
[2017-07-14 23:44] VITALS: BP 125/72
[2017-07-15] VITALS (7 sets, daily range): BP systolic 122–136; BP diastolic 66–75
--- NOTE | 2017-07-15 10:23 | SOCIAL WORKER PROG NOTE PSYCH ---
Social Work Progress Note Progress Note Pt states she was feeling like she was living in darkness, and became impulsive and was under the influence of etoh leading her to be admitted to CPS. Pt is not judging herself, but is aware this was not her true intention. Pt expressed interest in IOP, processed the importance of ongoing support in regards to mental health. Pt denies feeling si/hi/ah/vh. She identifies her tiffany as a support and her fiance is available to come in prior to discharge to identify ways in which he can be supportive as well.
--- NOTE | 2017-07-15 10:57 | CPS PROVIDER INIT ASMT PSYCH ---
Psychiatric Admission Saw Tailer's Note Reviewed: Yes Patient Seen and Examined: Yes Identifying Information: Patient is a 37-year-old female with no prior psychiatric history. Chief Complaint: The patient was admitted because of self-inflicted cut wounds to both wrists the left side required suturing Reaction to Hospitalization: The patient was admitted voluntarily however she promptly put in a three-day paper requesting discharge History of Present Illness Onset of Illness: The patient may have had some issues with alcohol in the past with 1 DUI. However she reported that she does not drink daily or heavy. It looks like there is a passive pattern of possibly binge drinking to manage anxiety according to her. The patient was intoxicated at the time of inflicting the cuts on herself. Her blood alcohol level in the emergency room was 309. The patient reported that she has been going through a number of psychosocial stressors including financial stress, falling out with her on family, anxious, and drinking excessively to manage her anxiety. Circumstances Leading to Admission: The patient's self-inflicted Wounds on her wrists Problem(s) Justifying Need for Admission: self-inflicted cuts /wounds Past Psychiatric History Past Diagnosis(es)- if any: The patient denied ever seeing a psychiatrist or being in hospitals. She does have a history of a DUI. She also described long-standing history of generalized anxiety Past Precipitating Factors- if any: Drinking - Include inpatient and outpatient treatment Treatment History: The patient had received some alcohol treatment following a DUI both no psychiatric treatment history History of Suicide Attempts or Gestures The patient denies any prior history of suicide attempts Substance Abuse History: The patient denied history of drug use. She acknowledged "social drinking" however she did have a DUI in the past and her fianc seems to suggest that she was drinking excessively lately Allergies: Coded Allergies: No Known Allergies (12/17/15) Home Med List: The patient was not on any psychotropic or nonpsychotropic medications - Include any medical condition(s) that may - impact the patient's recovery/remission Past Medical History: No significant physical health problems Past History Medical History Neurological: NONE EENT: NONE Cardiovascular: NONE Respiratory: NONE Gastrointestinal: NONE Hepatic: NONE Renal: NONE Musculoskeletal: NONE Psychiatric: NONE Endocrine: NONE Blood Disorders: NONE Cancer(s): NONE REGIONAL GEODETIC ADVISOR/Reproductive: NONE History of MRSA: No History of VRE: No History of CDIFF: No Isolation History: Standard Tetanus Vaccine: 07/11/17 Surgical History Surgical History: none Psychiatric Family/Social Hx Family History Psychiatric Illness: The patient reported that her mother and her sister both have anxiety disorders Substance Use: The patient denied any alcoholism or substance abuse on either side of the family Suicides: The patient denied any suicides among her biological relatives Social History Living Situation: The patient lives with significant other Significant Relationships (family/friends): Significant other, siblings and parents Education: Unknown 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 - #1 Recognizing dangerous situations. - #2 Coping Skills. - #3 Basic information about quitting. Status of Tobacco Cessation Counseling: #1, #2 AND #3 Completed Cessation Med Status Nicotine Patch Ordered Alcohol Screening - ETOH screen POS if BAL >=80 or Audit-C>= M4/F3 Audit-C Score from Diag Assess: 6 Blood Alcohol Level: BAL = 309 Alcohol Use Screening Results: Pos per Audit C &/or BAL - If ETOH counseling indicated - the following topics are required. - #1 Express concern about the patient's - drinking at unhealthy levels, include informing - of national norms for moderate drinking: - men <= 14 drinks/week, max 4 drinks/occasion - women <= 7 drinks/week, max 3 drinks/occasion - #2 Providing feedback, including linking alcohol to - negative physical effects (liver injury, hypertension) - negative emotional effects (relationship problems and - depression) - negative occupational consequences (reduced work - performance) - #3 Advising the patient to abstain from alcohol or - to drink below national norms for moderate drinking - (as listed above). Status of ETOH Use Counseling: #1, #2 AND #3 Completed. Metabolic Screening - Screen if on a Neuroleptic Medication - Metabolic screening should include: - Blood Pressure, BMI, Glucose or Hgb A1c, & a - Lipid profile from within the past 365 days. Metabolic Screening ([X]) Not Applicable, patient not on a neuroleptic. Exam and Plan Mental Status Examination Ambulation Status: Independently mobile, steady gait Appearance: Unremarkable Attitude towards examiner: Calm and cooperative Psychomotor activity: Normal psychomotor activity Behavior: No abnormal behaviors Quality of speech: Normal speech, not slurred, not pressured Affect: Good range of affect Mood: Feeling much better Suicidal Ideation: Denied thoughts of suicide Homicidal Ideation: Denied thoughts of violence or homicide Hallucinations: Denied hallucinations Paranoid/Delusional Material: Denies feeling paranoid, there were no delusions Difficulties with thought organization: There were no difficulties with thought organization Insight: Partial insight Judgment: Good judgment in hypothetical situations, poor judgment and real-life situations especially when intoxicated Orientation: Alert and oriented to time, place, and person. Cognition: Good attention and concentration Memory Function: No evidence of short-term memory impairment Estimate of intellectual functioning: Average Assets/Strengths Patient Identified Assets/Strengths: Patient is intelligent and likable Impression/Plan Impression and Plan: 37-year-old who was admitted because of self-inflicted cut wounds to both wrists the left wrist requiring sutures patient was intoxicated at the time patient does not have history of inpatient psychiatric treatment (this is her first) and no history of outpatient treatment either. - Include all active medical diagnosis that require tx DSM 5 Diagnosis(es): Disruptive mood dysregulation disorder Generalized anxiety disorder Alcohol use disorder - Initial Tx Plan for Active Psych & Medical Conditions Treatment Plan: Inpatient psychiatric care with safety checks every 15 minutes Alcohol detoxification Start sertraline Biopsychosocial assessment collateral information and aftercare planning - Factors that would help patient function - in a less restrictive setting. Factors: The patient will be discharge if she is no longer having thoughts of suicide tomorrow
[2017-07-16 07:43] VITALS: BP 124/70
[2017-07-16] MEDS ORDERED: Nicoderm TOP (08:15)
[2017-07-16] MEDS ORDERED: ATIVAN0.5 M1 PO (08:15)
[2017-07-16] MEDS ORDERED: SERTRALINE HCL50 MG PO (08:15)
--- NOTE | 2017-07-16 08:51 | Patient Discharge Instructions ---
Psych Discharge Inst General Discharge Information Reason for Admission: self-inflicted cut wounds Psy Discharge Primary Diag+ unspecified depression generalized anxiety Psy Discharge Secondary Diag+ General Anxiety Disorder Summary Tests/Major Procedures No significant abnormalities in the lab tests Studies Pending at DC: None Patient Instructions Contact Information Your Psychiatrist on [facility] was Nelson Granados MD * If you are experiencing an emergency related to this hospitalization, please call [phone] to contact the treating psychiatrist or the psychiatrist-on- call. * To Request a copy of your medical records, please contact the Medical Records Department at [phone]. * To request results of studies pending at the time of discharge, please call [phone]. * Continue your Medications until directed to stop by your Healthcare provider. General Medication Information Please continue to take your new medications and your continued home medications , unless otherwise indicated on your discharge medication list, or unless directed by your MD or CERTIFIED MEDICAL TECHNICIAN to stop them. Special Instructions Diet Regular Activity Normal - Tobacco Use Treatment Offered Post DC Medications Offered: Script Given-See Med List Post DC Tobacco Treatment Plan: [facility] Tobacco Tx Pgm - EtOH/Drug Use D/O Treatment Offered Post DC Medications Offered: Med Not Indicated for D/O Post DC EtOH/SubAbuse TX Plan: [facility] SubAbuse/Dual IOP Metabolic Screening ([X]) Not Applicable, patient not on a neuroleptic. Advance Directives Does the Patient have Medical Advance Directives No/Refused further info Does Pt have Psychiatric Advance Directives? No/Refused further info Does Patient have a Designated Surrogate Decision Maker: No Information About Psychiatric Advance Directives Provided? Refused Discharge Plan Post Hospital Treatment Plan: IOP
[2017-07-16 09:38] VITALS: BP 124/70
[2017-07-16 11:35] VITALS: BP 136/69
--- NOTE | 2017-07-16 11:59 | SOCIAL WORKER PROG NOTE PSYCH ---
See Addendum Social Work Progress Note Progress Note Spoke to Bradly her fiance and patient, he is comfortable with her returning home this afternoon, he is supportive to her attending IOP beginning tomorrow. Pt denies si/hi/ah/vh, "this has been a wake up call, and I plan to put myself first so I can get better", Bradly is aware of this as well, and fully understands how he can the significance of what lead her to hospitalization. Pt aware to call or return to ER if symptoms worsen. Pt agrees to attend IOP in the morning.
--- NOTE | 2017-07-16 20:15 | CP SOUTH PROGRESS NOTE PSYCH ---
Psych (Inpt) Progress Note Progress Note Mental Status Examination Independently mobile, steady gait Calm and cooperative Normal psychomotor activity No abnormal behaviors Normal speech, not slurred, not pressured Good range of affect Feeling much better Denied thoughts of suicide Denied thoughts of violence or homicide Denied hallucinations Denies feeling paranoid, there were no delusions There were no difficulties with thought organization Partial insight Good judgment in hypothetical situations, poor judgment and real-life situations especially when intoxicated Alert and oriented to time, place, and person. Good attention and concentration, no evidence of short-term memory impairment Assessment: 37-year-old who was admitted because of self-inflicted cut wounds to both wrists the left wrist requiring sutures patient was intoxicated at the time patient does not have history of inpatient psychiatric treatment (this is her first) and no history of outpatient treatment either. DSM 5 Diagnosis(es): Disruptive mood dysregulation disorder Generalized anxiety disorder Alcohol use disorder Treatment Plan: Patient may be discharged home with plan to continue treatment in an intensive outpatient program Paranoid/Delusional Material: Denies feeling paranoid, there were no delusions Difficulties with thought organization: There were no difficulties with thought organization Insight: Partial insight Judgment: Good judgment in hypothetical situations, poor judgment and real-life situations especially when intoxicated Orientation: Alert and oriented to time, place, and person. Cognition: Good attention and concentration Memory Function: No evidence of short-term memory impairment Estimate of intellectual functioning: Average Assets/Strengths Patient Identified Assets/Strengths: Patient is intelligent and likable Impression/Plan Impression and Plan: 37-year-old who was admitted because of self-inflicted cut wounds to both wrists the left wrist requiring sutures patient was intoxicated at the time patient does not have history of inpatient psychiatric treatment (this is her first) and no history of outpatient treatment either. - Include all active medical diagnosis that require tx DSM 5 Diagnosis(es): Disruptive mood dysregulation disorder Generalized anxiety disorder Alcohol use disorder - Initial Tx Plan for Active Psych & Medical Conditions Treatment Plan: Inpatient psychiatric care with safety checks every 15 minutes Alcohol detoxification Start sertraline Biopsychosocial assessment collateral information and aftercare planning
--- NOTE | 2017-07-16 20:16 | DISCHARGE SUMMARY REPORT-PSYCH ---
Visit Information Visit Dates/Diagnosis' Admission Date: 07/14/17 Discharge Date: 07/16/17 Reason for Admission: self-inflicted cut wounds Psy Discharge Primary Diag: unspecified depression generalized anxiety Psy Discharge Secondary Diag: General Anxiety Disorder Hospital Course Significant Lab Findings: Lab Serum Alcohol 309.0 MG/DL 07/11/17 1854 Course Complications: The patient did not have any complications while she was on the inpatient psychiatric unit Consultations: The patient had a history and physical examination performed by the compliance advisor, please see the electronic health record of the patient for the H&P note Allergies: Coded Allergies: No Known Allergies (12/17/15) Hospital Course/TX Response: The patient had a brief admission to the inpatient psychiatric unit. She was admitted from the crisis intervention center in the emergency department at [facility] on the . I saw the patient for initial psychiatric evaluation by a psychiatrist on July 15, 2017: My Impression and Plan were: 37-year-old who was admitted because of self-inflicted cut wounds to both wrists the left wrist requiring sutures patient was intoxicated at the time patient does not have history of inpatient psychiatric treatment (this is her first) and no history of outpatient treatment either. DSM 5 Diagnosis(es): Disruptive mood dysregulation disorder Generalized anxiety disorder Alcohol use disorder Treatment Plan: Inpatient psychiatric care with safety checks every 15 minutes Alcohol detoxification Start sertraline Biopsychosocial assessment collateral information and aftercare planning The patient's condition at the time of discharge, July 16, 2017: Mental Status Examination Independently mobile, steady gait, Calm and cooperative, \Normal psychomotor activity, No abnormal behaviors, Normal speech, not slurred, not pressured, Good range of affect, Feeling much better, Denied thoughts of suicide, Denied thoughts of violence or homicide, Denied hallucinations Denies feeling paranoid, there were no delusions, There were no difficulties with thought organization, Partial insight, Good judgment in hypothetical situations, poor judgment and real-life situations especially when intoxicated, Alert and oriented to time, place, and person., Good attention and concentration , no evidence of short-term memory impairment Treatment Plan: Patient may be discharged home with plan to continue treatment in an intensive outpatient program Discharge HBIPS - Tobacco Use Treatment Offered Post DC Medications Offered: Script Given-See Med List Post DC Tobacco Treatment Plan: Refused Tobacco Tx Pgm - EtOH/Drug Use D/O Treatment Offered Post DC Medications Offered: Med Not Indicated for D/O Post DC EtOH/SubAbuse TX Plan: [facility]hu SubAbuse/Dual IOP Metabolic Screening - Screen if on a Neuroleptic Medication - Metabolic screening should include: - Blood Pressure, BMI, Glucose or Hgb A1c, & a - Lipid profile from within the past 365 days. Metabolic Screening ([X]) Not Applicable, patient not on a neuroleptic. Discharge Instructions General Discharge Information Multiple Neuroleptics: ([X]) Not Applicable Discharge Diet Regular Discharge Activity Normal DC Disposition: Home Referrals Ordered Referrals Provider Referral 07/17/17 For Groups: [ IOP] Pt has an intake with [facility] 07/17/17 at 9:30am [address], [place] [phone] Prescriptions Start taking the following new medications: [Nicoderm] 21 Milligram On the skin DAILY Qty = 14 No Refills Comments: Last Taken:07/16/17 Time:8am Sertraline HCl (Sertraline HCl) 50 MG TABLET 50 Milligram ORAL DAILY @8 AM Qty = 30 No Refills Comments: Last Taken:07/16/17 Time:8am Lorazepam (Ativan) 0.5 MG TABLET 3 Tablet ORAL SEE INSTRUCTIONS Qty = 45 No Refills Instructions: 3 tabs at bedtime x 5 days then 2 tabs at bedtime x 5 days then 1 tab at bedtime x 5 days then stop Comments: Last Taken:07/15/17 Time:10pm Studies Pending at Discharge None Copies To: [facility]
== END 2017-07-16 12:50 | DRG 754 ==
LOC: ERH 18:38 → CP SOUTH 07-14 16:18 → ERHI 07-14 16:18 → ENTRNSPT 07-14 17:37 → CP SOUTH 07-14 17:39 → EDTRNSPTSTS 07-14 17:44 → CP SOUTH 07-14 17:48 → CMPTRNSPT 07-14 17:51 → ENRESERV 07-14 23:59 → CP SOUTH 07-15 10:32
PROVIDERS: Physician Assistant Medical
DX: F32.9 Major depressive disorder, single episode, unspecified (principal); F41.9 Anxiety disorder, unspecified
CPT/HCPCS: 80307; 81025; 90714; 96372; G0463; G0480; J0515; J1630; J3490